=== PATIENT | female | born 1950 | race Caucasian/White ===

== ENCOUNTER 2016-11-14 05:48 | Emergency (ER) | payer MEDICARE ==
[~2016-11-14 05:48] MED LIST: AUG875 PO; CALTRA600D PO; COMBIPATCH TOP; FISH-EPA1000 MG PO; FLONASE NAS; LEXAPRO10 PO; LYRICA300 MG PO; OXYCOD PO; PROAIR HFA INH; REM15 PO; SYN.05 PO; TOPAMAX100 PO; V5 PO
[2016-11-14 06:07] LABS: BASOPHILS 0.5 %; BASOPHILS ABSOLUTE 0.04 10/3/uL (0.0-0.16); EOSINOPHILS 1.8 %; EOSINOPHILS ABSOLUTE 0.13 10/3/uL (0.0-0.53); HEMATOCRIT 36.1 % (36.0-48.0); IMMATURE GRANULOCYTES 0.1 %; IMMATURE GRANULOCYTES ABSOLUTE 0.01 10/3/uL (0.0-0.11); LYMPHOCYTES 26.3 %; LYMPHOCYTES ABSOLUTE 1.92 10/3/uL (0.67-4.30); MEAN CORPUS HGB CONC 33.2 g/dL (32.0-36.0); MEAN CORPUSCULAR HEMOGLOB 29.4 pg (26.0-34.0); MEAN CORPUSCULAR VOLUME 88.5 fL (80-100); MEAN PLATELET VOLUME 9.1 fL (9.2-13.0); MONOCYTES ABSOLUTE 0.44 10/3/uL (0.21-1.20); NEUTROPHILS 65.3 %; NEUTROPHILS ABSOLUTE 4.75 10/3/uL (2.02-8.40); RBC DISTRIBUTION WIDTH 14.8 % (12.0-16.0); RED CELL COUNT 4.08 10/6/uL (4.0-5.6)
[2016-11-14 06:08] LABS: ER CBC TAT 0 Hrs 06 MinsNP; MANUAL DIFF NO %; PLATELET COUNT 277 10/3/uL (150-400); WHITE BLOOD CELLS 7.3 10/3/uL (4.5-10.5)
[2016-11-14 06:13] LABS: PARTIAL THROMBO TIME 26.7 SEC (22.5-37.2); PROTIME (NOT ORD) 13.5 SEC (12.0-14.5)
[2016-11-14 06:24] LABS: ALBUMIN 4.1 G/DL (3.5-5.0); ALKALINE PHOSPHATASE 85 U/L (45-117); BUN (BLOOD UREA NITROGEN) 23 MG/DL (6-23); CALCIUM, SERUM 9.2 MG/DL (8.5-10.4); CHEST PAIN PROFILE TAT 0 Hrs 22 Mins; CHLORIDE, SERUM 112 MMOL/L (96-112); CO2 (CARBON DIOXIDE) 24 MMOL/L (24-34); CPK 257 U/L (0-200); CREATININE 0.87 MG/DL (0.55-1.02); DIRECT BILIRUBIN < 0.1 MG/DL (0.0-0.4); GFR AFRICAN AMERICAN 80 ML/MIN (>=60); GFR NON AFRICAN AMERICAN 69 ML/MIN (>=60); GLUCOSE, SERUM 92 MG/DL (60-99); INDIRECT BILIRUBIN(NOT ORDER) 0.3 MG/DL (0.1-0.9); POTASSIUM, SERUM 3.5 MMOL/L (3.5-5.3); SGOT(AST) 17 U/L (5-40); SGPT(ALT) 15 U/L (5-65); SODIUM, SERUM 144 MMOL/L (135-148); TOTAL BILIRUBIN 0.4 MG/DL (0-1.2); TOTAL PROTEIN 7.3 G/DL (6.0-8.5); TROPONIN I <0.02 NG/ML (<0.05)
[2016-11-14 06:43] LABS: ASCORBIC ACID (UR NOT ORDER) NEG (NEG); BILIRUBIN, URINE NEGATIVE (NEG); KETONE, URINE NEGATIVE (NEG); LEUKOCYTE ESTERASE(NOT OR NEG (NEG); NITRITE (URINE) NEG (NEG); WBC (NOT ORDERED) (RFLEX) 1 (0-5)
== END 2016-11-14 07:15 | disposition home or self-care (01) ==
LOC: ER 05:48
PROVIDERS: Nurse Practitioner Acute Care
DX: R07.9 Chest pain, unspecified (principal); K59.00 Constipation, unspecified; G47.30 Sleep apnea, unspecified; F32.9 Major depressive disorder, single episode, unspecified; F41.9 Anxiety disorder, unspecified; Z88.8 Allergy status to other drugs, medicaments and biological substances; Z86.73 Personal history of transient ischemic attack (TIA), and cerebral infarction without residual deficits; Z79.891 Long term (current) use of opiate analgesic; Z79.899 Other long term (current) drug therapy
CPT/HCPCS: 71010; 74000; 80048; 80076; 81001; 82550; 83690; 83735; 84484; 85025; 85610; 85730; 96372; 99285; A9270-GY